=== PATIENT | male | born 1990 | race Hispanic/Latino ===

== ENCOUNTER 2019-05-13 18:33 | Observation (INO) | payer OTHER ==
[2019-05-13] MEDS ORDERED: MECLIZINE HCL 12.5 MG TAB ONE (19:22)
[2019-05-13] MEDS ORDERED: ONDANSETRON 4 MG/2 ML VIAL ONE (19:22)
[2019-05-13] MEDS ORDERED: NA CHLORIDE 0.9% 1,000 ML ONE ×2 (19:22→21:52)
[2019-05-13 19:34] LABS: Absolute Lymphocytes (CBC) 1.6 K/uL (0.7-4.9); Basophils % 0.2 % (0-1.3); Eosinophils % 0.1 % (0-4.4); Hematocrit 44.5 % (39.6-49.0); Lymphocytes % 12.2 % (15.3-44.8); MPV 8.2 fL (7.6-11.3); RBC Red Blood Cell Count 5.11 M/uL (4.33-5.43)
[2019-05-13 19:39] LABS: ALT/SGPT 57 U/L (12-78); AST/SGOT 20 U/L (15-37); Albumin 3.7 g/dL (3.4-5.0); Alkaline Phosphatase 125 U/L (45-117); BUN Blood Urea Nitrogen 14 mg/dL (7-18); Bicarbonate 23 mmol/L (21-32); Bilirubin Direct 0.1 mg/dL (0-0.2); Bilirubin Total 0.5 mg/dL (0.2-1.0); Creatine Phosphokinase 90 U/L (39-308); Glucose Level 187 mg/dL (74-106); Lipase 74 U/L (73-393); Potassium 3.7 mmol/L (3.5-5.1); Protein, Total 7.5 g/dL (6.4-8.2); Sodium Level 138 mmol/L (136-145); Troponin (Emerg Dept Use Only) < 0.02 ng/mL (0.0-0.045)
--- NOTE | 2019-05-13 20:10 | RAD REPORT ---
EXAM DESCRIPTION: CT - Head Brain Wo Cont - 05/13/2019 8:00 pm CLINICAL HISTORY: DIZZINESS Headache, drowsiness COMPARISON: <Comparisons> TECHNIQUE: All CT scans are performed using dose optimization technique as appropriate and may inclu de automated exposure control or mA/KV adjustment according to patient size. FINDINGS: No intracranial hemorrhage, hydrocephalus or extra-axial fluid collection.No areas of brai n edema or evidence of midline shift. The paranasal sinuses and mastoids are clear. The calvarium is intact. IMPRESSION: No acute intracranial abnormality.
--- NOTE | 2019-05-13 20:59 | RAD REPORT ---
EXAM DESCRIPTION: CTAbdomen Pelvis W Contrast - 05/13/2019 8:43 pm CLINICAL HISTORY: Abdominal pain. abdominal pain COMPARISON: No comparisons TECHNIQUE: Biphasic CT imaging of the abdomen and pelvis was performed with 100 ml non-ionic IV cont rast. All CT scans are performed using dose optimization technique as appropriate and may include automated exposure control or mA/KV adjustment according to patient size. FINDINGS: The lung bases are clear. The liver, spleen, pancreas, adrenal glands and kidneys are within normal limits. No bowel obstruction, free air, free fluid or abscess. The appendix is thickened to 12 mm and contai ns a small appendicolith. Surrounding inflammation is limited. No evidence of significant lymphadeno cheryle. No suspicious bony findings. IMPRESSION: Thickened appendix to 12 mm containing a small appendicolith. Only slight surrounding in flammation is seen, however. In the correct clinical setting, this may represent early acute appendic itis.
--- NOTE | 2019-05-13 21:38 | ER ---
Nurse's Notes [facility] Name: Marco Limon Age: 28 yrs Sex: Male : 1990 Arrival Date: 05/13/2019 Time: 18:34 Bed 14 Private MD: Diagnosis: Acute appendicitis Presentation: 05/13 18:34 Presenting complaint: Patient states: Right side abdominal cramping that started this aj afternoon while patient was working outside. Transition of care: patient was not received from another setting of care. Onset of symptoms was May 13, 2019. Risk Assessment: Do you want to hurt yourself or someone else? Patient reports no desire to harm self or others. Initial Sepsis Screen: Does the patient meet any 2 criteria? No. Patient's initial sepsis screen is negative. Does the patient have a suspected source of infection? No. Patient's initial sepsis screen is negative. 18:34 Method Of Arrival: EMS: [facility] 18:34 Acuity: MADHAV 3 aj 18:38 Care prior to arrival: Medication(s) given: Normal saline infusion, 750ml IV initiated. aj 20 GA, in the left wrist. Triage Assessment: 18:36 General: Appears in no apparent distress. comfortable, Behavior is calm, cooperative, aj appropriate for age. Pain: Complains of pain in right upper quadrant and right lower quadrant. Neuro: Level of Consciousness is awake, alert, obeys commands, Oriented to person, place, time, situation, Appropriate for age. Respiratory: Airway is patent Respiratory effort is even, unlabored, Respiratory pattern is regular, symmetrical. GI: Abdomen is non-distended, obese. GI: Reports lower abdominal pain, upper abdominal pain. Derm: Skin is intact, is healthy with good turgor, Skin is pink, warm \T\ dry. normal. Historical: - Allergies: 18:36 No Known Allergies; aj - Home Meds: 18:36 Metformin Oral [Active]; aj - PMHx: 18:36 Diabetes - NIDDM; aj - PSHx: 18:36 None; aj - Immunization history:: Adult Immunizations up to date. - Social history:: Smoking status: Patient/guardian denies using tobacco. - Ebola Screening: : Patient negative for fever greater than or equal to 101.5 degrees Fahrenheit, and additional compatible Ebola Virus Disease symptoms Patient denies exposure to infectious person Patient denies travel to an Ebola-affected area in the 21 days before illness onset No symptoms or risks identified at this time. Screenin:52 Abuse screen: Denies threats or abuse. Denies injuries from another. Nutritional screening: No deficits noted. Tuberculosis screening: No symptoms or risk factors identified. Fall Risk None identified. Assessment: 18:51 Reassessment: Patient appears in no apparent distress at this time. No changes from previously documented assessment. 20:08 Reassessment: Patient appears in no apparent distress at this time. No changes from aj previously documented assessment. Patient and/or family updated on plan of care and expected duration. Pain level reassessed. Patient is alert, oriented x 3, equal unlabored respirations, skin warm/dry/pink. 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 21:25 Reassessment: Patient appears in no apparent distress at this time. No changes from previously documented assessment. Patient and/or family updated on plan of care and expected duration. Pain level reassessed. Patient is alert, oriented x 3, equal unlabored respirations, skin warm/dry/pink. 22:00 Reassessment: Patient and/or family updated on plan of care and expected duration. Pain cr4 level reassessed. Patient is alert, oriented x 3, equal unlabored respirations, skin warm/dry/pink. Helped into gown and jewelry given to significant other.. Vital Signs: 18:36 BP 137 / 84; Pulse 109; Resp 20; Temp 98.4; Pulse Ox 97% on R/A; Weight 99.79 kg; aj Height 5 ft. 6 in. (167.64 cm); 20:09 BP 117 / 81; Pulse 81; Resp 15; Pulse Ox 98% on R/A; aj 21:25 BP 114 / 75; Pulse 76; Resp 16; Pulse Ox 99% on R/A; aj 18:36 Body Mass Index 35.51 (99.79 kg, 167.64 cm) ED Course: 18:34 Patient arrived in ED. 18:34 Faustino Byers PA is PHCP. [facility] 18:34 Darrell Fischer MD is Attending Physician. [facility] 18:35 Triage completed. 18:35 Bed in low position. Call light in reach. Side rails up X 1. Side rails up X2. Verbal jp3 reassurance given. school lunch monitor on. Pulse ox on. NIBP on. 18:36 Arm band placed on right wrist. Patient placed in an exam room, on a stretcher, on aj monitor tech, on pulse oximetry. 18:44 Glucose, Ancillary Testing Sent. jp3 18:51 Alma Woodall, RN is Primary Nurse. aj 18:52 Maintain EMS IV. Gauge \T\ site: 20 Left wrist. aj 19:10 Initial lab(s) drawn, by me, sent to lab. jp3 19:24 Basic Metabolic Panel Sent. jp3 19:24 CBC with Diff Sent. jp3 19:24 Creatinine for Radiology Sent. jp3 19:24 Hepatic Function Sent. jp3 19:24 Lipase Sent. jp3 19:[address] via wheelchair. aj 20:00 CT completed. Patient tolerated procedure well. Patient moved back from CT. nj 20:00 CT Head Brain wo Cont In Process Unspecified. EDMS 20:43 CT Abd/Pelvis - IV Contrast Only In Process Unspecified. EDMS 21:25 No provider procedures requiring assistance completed. IV discontinued, intact, aj bleeding controlled, No redness/swelling at site. Pressure dressing applied. 21:37 Jaswinder Montero MD is Hospitalizing Provider. [facility] Administered Medications: 19:11 Drug: NS 0.9% 1000 ml Route: IV; Rate: 1 bolus; Site: left wrist; aj 21:44 Follow up: Response: No adverse reaction; IV Status: Completed infusion; IV Intake: aj 1000ml 19:12 Drug: Meclizine 50 mg Route: PO; aj 20:24 Follow up: Response: No adverse reaction aj 19:12 Drug: Zofran 4 mg Route: IVP; Site: left wrist; aj 20:24 Follow up: Response: No adverse reaction aj 21:42 Drug: Mefoxin 1 grams Route: IVPB; Infused Over: 30 mins; Site: left hand; aj 21:43 Follow up: Response: No adverse reaction; IV Status: Completed infusion; IV Intake: 10mlaj 21:42 Drug: Flagyl 500 mg Volume: 100 ml; Route: IVPB; Rate: 200 ml/hr; Infused Over: 30 aj mins; Site: left wrist; 22:10 Follow up: Response: No adverse reaction; IV Intake: 100ml cr4 21:43 Drug: NS 0.9% 1000 ml Route: IV; Rate: 125 ml/hr; Site: left wrist; aj 22:15 Follow up: Response: No adverse reaction; IV Status: Infusion continued upon transfer; cr4 IV Intake: 200ml Point of Care Testing: Blood Glucose: 18:44 Blood Glucose: 144 mg/dL; jp3 Ranges: Intake: 21:43 IV: 10ml; Total: 10ml. aj 21:44 IV: 1000ml; Total: 1010ml. aj 22:10 IV: 100ml; Total: 1110ml. cr4 22:15 IV: 200ml; Total: 1310ml. cr4 Outcome: 21:37 Decision to Hospitalize by Provider. audrey 22:00 Instructed on the need for admit. cr4 22:25 Patient left the ED. cr4 22:25 Admitted to OR accompanied by nurse, family with patient, via stretcher, with chart. cr4 22:25 Condition: stable Signatures: Dispatcher [employer] Alma Dominguez, RN RN Faustino Kaur PA PA jmm Ruiz, Claudia, RN RN cr4 Evaristo Watson Jacob jp3 Corrections: (The following items were deleted from the chart) 18:39 18:34 Care prior to arrival: None. fabi 05/14 03:05/13 21:25 Discharged to home ambulatory, with family, [facility] 05/14 03:05/13 21:25 Condition: good [facility] 05/14 03:51 05/13 21:25 Discharge instructions given to patient, family, Instructed on discharge cr4 instructions, follow up and referral plans. Demonstrated understanding of instructions, follow-up care, fabi
--- NOTE | 2019-05-13 21:38 | EDPHYS ---
Physician Documentation [facility] Name: Marco Limon Age: 28 yrs Sex: Male : 1990 Arrival Date: 05/13/2019 Time: 18:34 Bed 14 Private MD: ED Physician Darrell Fischer HPI: 05/13 18:44 This 28 yrs old Male presents to ER via EMS with complaints of Abdominal jmm Cramping. 18:44 The patient presents with abdominal pain in the right upper quadrant, right lower jmm quadrant. Onset: The symptoms/episode began/occurred today. Associated signs and symptoms: Pertinent positives: nausea and vomiting. The symptoms are described as achy. The patient has not experienced similar symptoms in the past. This is a 28 year old male with a history of dm that presents to the ED with complaints of right sided abdominal pain beginning earlier today. Patient states at work he became weak and dizzy with vomiting. . Historical: - Allergies: 18:36 No Known Allergies; aj - Home Meds: 18:36 Metformin Oral [Active]; aj - PMHx: 18:36 Diabetes - NIDDM; aj - PSHx: 18:36 None; aj - Immunization history:: Adult Immunizations up to date. - Social history:: Smoking status: Patient/guardian denies using tobacco. - Ebola Screening: : Patient negative for fever greater than or equal to 101.5 degrees Fahrenheit, and additional compatible Ebola Virus Disease symptoms Patient denies exposure to infectious person Patient denies travel to an Ebola-affected area in the 21 days before illness onset No symptoms or risks identified at this time. ROS: 18:44 Constitutional: Negative for fever, chills, and weight loss, Eyes: Negative for injury, jmm pain, redness, and discharge, ENT: Negative for injury, pain, and discharge, Neck: Negative for injury, pain, and swelling, Cardiovascular: Negative for chest pain, palpitations, and edema, Respiratory: Negative for shortness of breath, cough, wheezing, and pleuritic chest pain. 18:44 Abdomen/GI: Positive for abdominal pain. 18:44 Neuro: Positive for dizziness. 18:44 All other systems are negative. Exam: 18:44 Constitutional: This is a well developed, well nourished patient who is awake, alert, jmm and in no acute distress. Head/Face: atraumatic. Eyes: EOMI, no conjunctival erythema appreciated ENT: Moist Mucus Membranes Neck: Trachea midline, Supple Chest/axilla: Normal chest wall appearance and motion. Cardiovascular: Regular rate and rhythm. No edema appreciated Respiratory: Normal respirations, no respiratory distress appreciated 18:44 Abdomen/GI: Inspection: abdomen appears normal, Bowel sounds: normal, Palpation: soft, mild abdominal tenderness, in the right upper quadrant and right lower quadrant. 18:44 Back: ROM is normal. 18:44 Musculoskeletal/extremity: ROM: intact in all extremities. 18:44 Skin: Appearance: Color: normal in color. 18:44 Neuro: Orientation: is normal, Mentation: is normal, Memory: is normal. 18:44 Psych: Behavior/mood is pleasant, cooperative. Vital Signs: 18:36 BP 137 / 84; Pulse 109; Resp 20; Temp 98.4; Pulse Ox 97% on R/A; Weight 99.79 kg; aj Height 5 ft. 6 in. (167.64 cm); 20:09 BP 117 / 81; Pulse 81; Resp 15; Pulse Ox 98% on R/A; aj 21:25 BP 114 / 75; Pulse 76; Resp 16; Pulse Ox 99% on R/A; aj 18:36 Body Mass Index 35.51 (99.79 kg, 167.64 cm) MDM: 18:57 Patient medically screened. [facility] 21:32 Data reviewed: vital signs, nurses notes. Counseling: I had a detailed discussion with [facility] the patient and/or guardian regarding: the historical points, exam findings, and any diagnostic results supporting the discharge/admit diagnosis, lab results, radiology results, the need for further work-up and treatment in the hospital. ED course: I discussed the patient with Dr. Montero whom evaluated the patient. . 05/13 18:44 Order name: Glucose, Ancillary Testing; Complete Time: 18:58 EDTN 05/13 19:02 Order name: Basic Metabolic Panel [facility] 05/13 19:02 Order name: CBC with Diff [facility] 05/13 19:02 Order name: Creatinine for Radiology [facility] 05/13 19:02 Order name: Hepatic Function [facility] 05/13 19:02 Order name: Lipase [facility] 05/13 19:02 Order name: Troponin (emerg Dept Use Only); Complete Time: 19:41 [facility] 05/13 19:02 Order name: CT Head Brain wo Cont; Complete Time: 20:13 [facility] 05/13 19:02 Order name: CPK; Complete Time: 19:41 [facility] 05/13 19:02 Order name: Basic Metabolic Panel; Complete Time: 19:41 [facility] 05/13 19:02 Order name: CBC with Automated Diff; Complete Time: 19:39 [facility] 05/13 19:02 Order name: Creatinine (Radiology Only); Complete Time: 19:39 [facility] 05/13 19:02 Order name: Liver (Hepatic) Function; Complete Time: 19:41 [facility] 05/13 19:02 Order name: Lipase; Complete Time: 19:41 [facility] 05/13 19:02 Order name: IV Saline Lock; Complete Time: 19:14 [facility] 05/13 19:02 Order name: Labs collected and sent; Complete Time: 19:14 [facility] 05/13 19:02 Order name: EKG - Nurse/Tech; Complete Time: 19:25 [facility] 05/13 20:25 Order name: CT Abd/Pelvis - IV Contrast Only; Complete Time: 21:01 [facility] Administered Medications: 19:11 Drug: NS 0.9% 1000 ml Route: IV; Rate: 1 bolus; Site: left wrist; aj 21:44 Follow up: Response: No adverse reaction; IV Status: Completed infusion; IV Intake: aj 1000ml 19:12 Drug: Meclizine 50 mg Route: PO; aj 20:24 Follow up: Response: No adverse reaction aj 19:12 Drug: Zofran 4 mg Route: IVP; Site: left wrist; aj 20:24 Follow up: Response: No adverse reaction aj 21:42 Drug: Mefoxin 1 grams Route: IVPB; Infused Over: 30 mins; Site: left hand; aj 21:43 Follow up: Response: No adverse reaction; IV Status: Completed infusion; IV Intake: 10mlaj 21:42 Drug: Flagyl 500 mg Volume: 100 ml; Route: IVPB; Rate: 200 ml/hr; Infused Over: 30 aj mins; Site: left wrist; 22:10 Follow up: Response: No adverse reaction; IV Intake: 100ml cr4 21:43 Drug: NS 0.9% 1000 ml Route: IV; Rate: 125 ml/hr; Site: left wrist; aj 22:15 Follow up: Response: No adverse reaction; IV Status: Infusion continued upon transfer; cr4 IV Intake: 200ml Point of Care Testing: Blood Glucose: 18:44 Blood Glucose: 144 mg/dL; jp3 Ranges: Critical Glucose Levels:Adult <50 mg/dl or >400 mg/dl <40 mg/dl or >180 mg/dl Disposition: 05/14 07:53 Co-signature as Attending Physician, Darrell Fischer MD I agree with the assessment and kdr plan of care. Disposition: 05/13/19 21:37 Hospitalization ordered by Jaswinder Montero for Observation. Preliminary diagnosis is Acute appendicitis. - Bed requested for Operating Room. - Status is Observation. cr4 - Condition is Stable. - Problem is new. - Symptoms are unchanged. UTI on Admission? No Signatures: Dispatcher [employer] EDMS Alma Woodall, RN RN Darrell Salinas MD MD [facility] Faustino Byers PA PA jmm Ruiz, Claudia, RN RN cr4 Corrections: (The following items were deleted from the chart) 05/13 22:25 21:37 Hospitalization Ordered by Jaswinder Montero MD for Observation. Preliminary cr4 diagnosis is Acute appendicitis. Bed requested for Operating Room. Status is Observation. Condition is Stable. Problem is new. Symptoms are unchanged. UTI on Admission? No. audrey
[2019-05-13] MEDS ORDERED: METRONIDAZOLE 500mg IVPB 500 MG/100 ML BAG IV ONE (21:52)
[2019-05-13] MEDS ORDERED: CEFOXITIN/SWI 1gm 1 GM/10 ML SYR ONE (21:52)
--- NOTE | 2019-05-13 22:39 | P.HP ---
Date of Service: 05/13/19 PC: This 28-year-old male presented to the emergency room with severe right- sided abdominal pain. HPC: Patient was at work today, noticed he was having pain in his right side coming around to the front of his abdomen. Became very very severe. Had to leave work and was brought to the emergency room for evaluation and treatment. Also had a concomitant headache. PMH: Diabetes (type 2) PSHx: No prior surgeries SOC: Denies any allergies, is supposed to be taking metformin but has not SYS REVIEW: No cough, wheeze, shortness of breath. No chest pain or palpitations. Snores and stops breathing. Denies any urinary complaints. O/E awake alert vital signs are stable HEENT: Not jaundice Chest: Chest movement equal bilaterally ABD: Tender with guarding in the right lower quad LOCO: Intact DATA: Elevated white cell count with left shift, CT scan demonstrates early appendicitis without pen IMPRESSION: Acute abdomen with early appendicitis PLAN: I will take him the operating room for laparoscopic possible open appendectomy. The risks of this procedure have been discussed. The possibility of bleeding, infection, injury to bowel and blood vessels has been described. The possible need for an open and/or further surgeries and procedures was discussed. He understands and wants us to proceed.
[2019-05-13] MEDS ORDERED: SUCCINYLCHOLINE 20 MG/ML (10 ML) IV ONE (22:41)
[2019-05-13] MEDS ORDERED: BUPIVACAINE 0.25% PF 10 ML VIAL ONE (22:44)
[2019-05-13] MEDS ORDERED: FENTANYL CITR 250 MCG/5 ML ONE (22:45)
[2019-05-13] MEDS ORDERED: ROCURONIUM 50 MG/5 ML VIAL IV ONE (22:45)
[2019-05-13] MEDS ORDERED: PROPOFOL 200 MG/20 ML VIAL IV ONE (22:45)
[2019-05-13] MEDS ORDERED: MIDAZOLAM HCL 2 MG/2 ML INJ ONE (22:45)
[2019-05-13] MEDS ORDERED: GLYCOPYRROLATE 0.2 MG/ML SYR ONE (23:31)
[2019-05-13] MEDS ORDERED: NEOSTIGMINE 1 MG/ML -10 ML VIAL ONE (23:31)
--- NOTE | 2019-05-13 23:38 | P.OP ---
Preoperative diagnosis: Acute abdomen with appendicitis Postoperative diagnosis: The same Primary procedure: Laparoscopic appendectomy Anesthesia: General Estimated blood loss: Less than 10 cc Specimen: 1 appendix Operative Technique: The patient was brought to the operating room, placed supine on the table. After the induction of adequate general endotracheal anesthesia, the area of the abdomen was prepped with a DuraPrep solution, and he was draped in the usual aseptic manner. A subumbilical incision was made. This was brought down through the skin and subcutaneous tissue. The Visiport was used to enter the peritoneal cavity and create a pneumoperitoneum to approximately 12 mm of mercury. Under direct vision a 5 mm trocar was placed in the lower midline and another 5 mm in the right upper quadrant. The patient was then positioned in Trendelenburg and rolled to the left side. We were able to visualize right lower quadrant. We could see a acutely inflamed appendix. It was more dilated at the tip them proximal. The appendix was then gently dissected from the surrounding structures. The junction of the appendix with the with the cecum was identified. An opening was made in the mesentery of the appendix. The 10 mm trocar was now converted to a 12 with the camera moved to the right upper port with a 5 mm view. The linear Stapler was introduced into the peritoneal cavity. It was placed across the base of the appendix and fired. A vascular reload was then placed into the Stapler. The mesentery of the appendix was then taken down. The appendix having been was placed into an Endo- Catch, brought out through the umbilical port site. Attention was turned back towards the right lower quadrant. The area was gently irrigated with the saline solution. The effluent was aspirated. 0.25% Marcaine was aerosolize into the right lower quadrant. Attention was turned towards the umbilical trocar. Using the endo-close absorbable sutures were placed to close the defect. The patient was now returned to the neutral position on the OR table. The pneumoperitoneum was collapsed, the umbilical sutures tied, and ze applied to the skin. At the end of the procedure the patient was in stable condition and sent to the recovery room. Needle sponge and instrument count were correct. 1 specimen was sent for histopathology. Sterile dressings had been applied. Complications: None Transferred to: Recovery Room Condition: Good
[2019-05-13] MEDS ORDERED: ONDANSETRON 4 MG/2 ML VIAL IV PRN (23:44)
[2019-05-13] MEDS ORDERED: HYDROCODONE/APAP 7.5/325 MG TAB PO PRN (23:44)
[2019-05-13] MEDS: Ringers Lactate 1,000 ML IV SCH (23:46)
[2019-05-14] MEDS ORDERED: MEPERIDINE HCL 25 MG/0.5 ML ONE (00:14)
[2019-05-14] MEDS ORDERED: KETOROLAC 30 MG/ML INJ ONE (00:14)
[2019-05-14] MEDS: Ringers Lactate 1,000 ML IV SCH ×2 (01:33→10:58)
[2019-05-14] MEDS: MORPHINE 4 MG/ML SYR IV PRN ×2 (04:21→10:59)
--- NOTE | 2019-05-14 15:04 | EKG ---
Test Date: 2019-05-13 Test Time: 19:24:28 Transportation Sales Consultant: [id number] MEASUREMENT RESULTS: Intervals: Rate: 83 CA: 124 QRSD: 94 QT: 378 QTc: 444 [place]: P: 56 CA: 124 QRS: 64 T: 24 INTERPRETIVE STATEMENTS: Normal sinus rhythm Normal ECG No previous ECG available for comparison Electronically Signed On 05-14-19 15:03:14 CDT by Shan Villar
== END 2019-05-14 19:03 | disposition home or self-care (01) ==
LOC: ER 18:33 → ERHOLD 22:59 → INTOOBSV 22:59 → 4TH 23:09
PROVIDERS: ADMIT Surgery; ATTEND Surgery
PROC: 0DTJ4ZZ Resection of Appendix, Percutaneous Endoscopic Approach (ICD-10-PCS; principal; 2019-05-13 22:27)
DX: K35.80 Unspecified acute appendicitis (principal); E11.9 Type 2 diabetes mellitus without complications; T38.3X6A Underdosing of insulin and oral hypoglycemic [antidiabetic] drugs, initial encounter; Z91.128 Patient's intentional underdosing of medication regimen for other reason
CPT/HCPCS: 36415; 70450; 74177; 80048; 80076; 82550; 82962; 83690; 84484; 85025; 88304; 93005; 99285; G0378; J0330; J2175; J2250; J2405; J2704; J2710; J3010; J7030; Q9967